=== PATIENT | male | born 1990 | race Two or more races ===

== ENCOUNTER 2018-02-18 22:27 | Emergency (ER) | payer OTHER ==
[~2018-02-18] VITALS: Ht 177.8 cm; Wt 81.6 kg
[2018-02-19] MEDS ORDERED: CYCLOBENZAPRINE10 MG PO (01:34)
[2018-02-19] MEDS ORDERED: METHOCARBAMOL500 MG PO (01:34)
[2018-02-19] MEDS ORDERED: KETO10TA2 PO (01:34)
== END 2018-02-19 01:50 | disposition home or self-care (01) ==
LOC: ER 22:27
DX: M62.830 Muscle spasm of back (principal)

== ENCOUNTER 2023-07-23 11:44 | Outpatient (CLI) | payer OTHER ==
[~2023-07-23 11:44] MED LIST: CYCLOBENZAPRINE10 MG PO; KETO10TA2 PO; METHOCARBAMOL500 MG PO
== END 2023-07-23 11:59 | disposition home or self-care (01) ==
LOC: RAD 11:44
DX: M99.01 Segmental and somatic dysfunction of cervical region (principal); M99.02 Segmental and somatic dysfunction of thoracic region; M99.03 Segmental and somatic dysfunction of lumbar region; M99.04 Segmental and somatic dysfunction of sacral region; M99.05 Segmental and somatic dysfunction of pelvic region